=== PATIENT | male | born 1955 | race Two or more races ===

== ENCOUNTER 2019-02-24 07:04 | Outpatient (CLI) | payer OTHER | END 2019-02-24 23:59 | disposition home or self-care (01) | LOC: CFH 07:04 | PROVIDERS: ATTEND Psychiatry & Neurology Neurology | DX: R41.9 Unspecified symptoms and signs involving cognitive functions and awareness (principal); Z79.899 Other long term (current) drug therapy | CPT/HCPCS: 70551 ==

== ENCOUNTER → 2019-02-28 | Outpatient (CLI) | payer OTHER | END | disposition home or self-care (01) | LOC: CARD 06:58 | PROVIDERS: ATTEND Psychiatry & Neurology Neurology | DX: R25.1 Tremor, unspecified (principal) | CPT/HCPCS: 95819 ==